=== PATIENT | male | born 1965 | race Caucasian/White ===

== ENCOUNTER 2017-08-30 18:34 | Emergency (ER) | payer MEDICAID ==
--- NOTE | 2017-08-30 19:29 | ED Physician Chart ---
ED Chief Complaint/HPI - Patient Information Date Seen:: 08/30/17 Time Seen:: 19:28 Chief Complaint:: ETOH intoxication History of Present Illness:: 52 yo male was brought by ambulance to ER due to heavy alcohol intake today and a subsequent fall outside a business. At ER, patient was slurring his words and strong alcohol smell in his mouth during conversation. He was screaming and asking for food. He denied any pain or sob. Allergies:: Allergies Allergy/AdvReac Type Severity Reaction Status Date / Time No Known Allergies Allergy Verified 08/03/17 15:13 Vitals:: Vital Signs - 8 hr 08/30/17 18:41 Temp 98.4 F HR 91 RR 21 BP 123/72 O2 Sat % 93 ED Review of Systems - Review of Systems General/Constitutional: No fever Skin: No rash Head: Headache Eyes: No pain ENT: No nasal drainage Neck: No neck pain Cardio Vascular: No chest pain Pulmonary: No SOB GI: No nausea, No vomiting Musculoskeletal: No bone or joint pain ED Past Medical History - Past Medical History Past Medical History: Other (alcohol abuse) Social History: Non Smoker, Alcohol, No Drug Use Surgical History: None Family Medical History - Family Member Mother History Unknown: Yes Ethnicity: Non- ED Physical Exam - Physical Examination General/Constitutional: Awake Head: Atraumatic Eyes: PERRL Skin: No ecchymosis Other ENMT comments:: slurred words Neck: No nuchal rigidity Respiratory: Clear to Auscultation Cardio Vascular: RRR, No murmur, gallop, rubs, NL S1 S2 GI: No tenderness/rebounding/guarding Extremities: normal strength in all extremities Neuro/Psych: No focal deficits ED Assessment - Assessment General Assessment: Alcohol intoxication Leukopenia Assessment/Comments:: CBC, CMP ETOH level Observation ED Septic Shock - . Is Septic Shock (SBP<90, OR Lactate>4 mmol\L) present?: No - <6hrs of presentation: Vital Signs: Vital Signs - 8 hr 08/30/17 18:41 Temp 98.4 F HR 91 RR 21 BP 123/72 O2 Sat % 93 ED Reassessment (Disposition) - Reassessment Reassessment Condition:: Unchanged - Patient Disposition Discharge/Transfer:: Eloped without signing AMA ED Discharge Plan - Patient Disposition Admit/Discharge/Transfer: PATIENT ELOPED
[2017-08-30 19:43] LABS: LYMPHOCYTE ABSOLUTE 1.5 Th/cmm (1.5-3.0); MONOCYTE ABSOLUTE 0.3 Th/cmm (0.3-1.0)
[2017-08-30 19:46] LABS: % BASOPHILS 0.5 % (0.0-2.0); % EOSINOPHILS 4.1 % (0.0-5.0); % LYMPHOCYTES 34.7 % (20.0-50.0); % MONOCYTES 8.2 % (2.0-10.0); % NEUTROPHILS 52.5 % (40.0-80.0); EOSINOPHILE ABSOLUTE 0.2 Th/cmm (0.1-0.4); HEMATOCRIT 37.4 % (41.0-60); HEMOGLOBIN 12.9 gm/dL (12-16); MEAN CELL VOLUME 94.2 fl (80-99); MEAN CORPUSCULAR HEMOGLOBIN 32.5 pg (26.0-30.0); MEAN CORPUSCULAR HGB CONC 34.5 pg (28.0-36.0); MEAN PLATELET VOLUME 6.1 fl; NEUTROPHILE ABSOLUTE 2.2 Th/cmm (1.8-8.0); PLATELET COUNT 265 Th/cmm (150-400); RED BLOOD COUNT 3.97 Mil/cmm (4.30-5.70)
[2017-08-30 19:48] LABS: WHITE BLOOD COUNT 4.2 Th/cmm (4.8-10.8)
[2017-08-30 20:00] LABS: ALB/GLOB RATIO 1.4 (1.0-1.8); ALBUMIN 4.2 gm/dL (4.2-5.5); ALKALINE PHOSPHATASE 37 U/L (34-104); ANION GAP 9.8 (7.0-16.0); BILIRUBIN,TOTAL 0.5 mg/dL (0.3-1.0); BUN - UREA NITROGEN 9 mg/dL (7-25); CARBON DIOXIDE 27.9 mEq/L (21.0-31.0); CHLORIDE 102 mEq/L (98-107); CREATININE - SERUM 0.7 mg/dL (0.7-1.3); GFR AFRICAN-AMERICAN > 60.0 ml/min (>90); GFR NON AFRICAN-AMERICAN > 60.0 ml/min; GLUCOSE 99 mg/dL (70-105); POTASSIUM SERUM 3.7 mEq/L (3.5-5.1); SGOT 32 U/L (13-39); SGPT/ALT 18 U/L (7-52); SODIUM SERUM 136 mEq/L (136-145); TOTAL PROTEIN,SERUM 7.2 gm/dL (6.0-8.3)
== END 2017-08-30 20:35 | disposition left against medical advice (07) ==
LOC: ER 18:34
DX: F10.129 Alcohol abuse with intoxication, unspecified (principal); D72.819 Decreased white blood cell count, unspecified
CPT/HCPCS: 36415-UA; 80053-TC; 80320-TC; 85025-TC; Z7502

== ENCOUNTER 2018-05-14 20:37 | Emergency (ER) | payer SELFPAY ==
[2018-05-14 21:34] LABS: % BASOPHILS 1.6 % (0.0-2.0); % EOSINOPHILS 3.1 % (0.0-5.0); % LYMPHOCYTES 34.1 % (20.0-50.0); % MONOCYTES 11.5 % (2.0-10.0); % NEUTROPHILS 49.7 % (40.0-80.0); BASOPHILE ABSOLUTE 0.1 Th/cumm (0-0.2); EOSINOPHILE ABSOLUTE 0.1 Th/cmm (0.1-0.4); HEMATOCRIT 34.4 % (41.0-60); HEMOGLOBIN 11.7 gm/dL (12-16); LYMPHOCYTE ABSOLUTE 1.5 Th/cmm (1.5-3.0); MEAN CELL VOLUME 92.5 fl (80-99); MEAN CORPUSCULAR HEMOGLOBIN 31.4 pg (26.0-30.0); MEAN CORPUSCULAR HGB CONC 33.9 pg (28.0-36.0); MEAN PLATELET VOLUME 5.5 fl; MONOCYTE ABSOLUTE 0.5 Th/cmm (0.3-1.0); NEUTROPHILE ABSOLUTE 2.1 Th/cmm (1.8-8.0); PLATELET COUNT 478 Th/cmm (150-400); RED BLOOD COUNT 3.72 Mil/cmm (4.30-5.70); RED CELL DISTRIBUTION WIDTH 14.5 % (11.5-20.0); WHITE BLOOD COUNT 4.3 Th/cmm (4.8-10.8)
[2018-05-14] MEDS ORDERED: Albuterol Nebulizer 2.5mg/3mL HHN ONE (21:36)
[2018-05-14 21:51] LABS: ANION GAP 14.2 (7.0-16.0); BUN - UREA NITROGEN 15 mg/dL (7-25); CALCIUM SERUM 8.7 mg/dL (8.6-10.3); CARBON DIOXIDE 25.4 mEq/L (21.0-31.0); CHLORIDE 101 mEq/L (98-107); CREATININE - SERUM 0.7 mg/dL (0.7-1.3); GFR AFRICAN-AMERICAN > 60.0 ml/min (>90); GFR NON AFRICAN-AMERICAN > 60.0 ml/min; GLUCOSE 108 mg/dL (70-105); POTASSIUM SERUM 3.6 mEq/L (3.5-5.1); SODIUM SERUM 137 mEq/L (136-145)
--- NOTE | 2018-05-14 22:44 | ED Physician Chart ---
ED Chief Complaint/HPI - Patient Information Date Seen:: 05/14/18 Time Seen:: 22:23 Chief Complaint:: Alcohol intoxication History of Present Illness:: 53 yo male was noted sleeping on street drunk and was brought by ambulance to ER for evaluation and management. On arrival, patient was screaming in the hallway. Patient stated "I am hungry." Allergies:: Allergies Allergy/AdvReac Type Severity Reaction Status Date / Time No Known Allergies Allergy Verified 05/14/18 21:05 Vitals:: Vital Signs - 8 hr 05/14/18 21:00 Temp 97.7 F HR 90 RR 18 BP 126/87 O2 Sat % 95 ED Review of Systems - Review of Systems General/Constitutional: No fever Skin: No rash Head: No headache Eyes: No pain ENT: No nasal drainage Neck: No neck pain Cardio Vascular: No chest pain Pulmonary: No SOB GI: Nausea, No vomiting Musculoskeletal: Muscle pain Neurological: No focal symptoms ED Past Medical History - Past Medical History Past Medical History: No significant medical hx Social History: Non Smoker, Alcohol, No Drug Use Surgical History: None Family Medical History - Family Member Mother History Unknown: Yes Ethnicity: Non- ED Physical Exam - Physical Examination General/Constitutional: Awake Head: Atraumatic Eyes: PERRL Skin: No skin lesions ENMT: Nasal exam nl Neck: No nuchal rigidity Respiratory: No Wheeze/Rhonchi/Rales Cardio Vascular: RRR, No murmur, gallop, rubs, NL S1 S2 GI: No tenderness/rebounding/guarding Extremities: normal strength in all extremities Neuro/Psych: No focal deficits ED Labs/Radiology/EKG Results - Lab Results Results: Laboratory Tests 05/14/18 05/14/18 21:30 21:30 WBC 4.3 L RBC 3.72 L Hgb 11.7 L Hct 34.4 L MCV 92.5 MCH 31.4 H MCHC Differential 33.9 RDW 14.5 Plt Count 478 H MPV 5.5 Neutrophils % 49.7 Lymphocytes % 34.1 Monocytes % 11.5 H Eosinophils % 3.1 Basophils % 1.6 Sodium 137 Potassium 3.6 Chloride 101 Carbon Dioxide 25.4 Anion Gap 14.2 BUN 15 Creatinine 0.7 Est GFR ( Amer) > 60.0 Est GFR (Non-Af Amer) > 60.0 BUN/Creatinine Ratio 21.4 Glucose 108 H Calcium 8.7 Ethyl Alcohol 315 H ED Assessment - Assessment General Assessment: ETOH intoxication Normocytic anemia Assessment/Comments:: CBC, CMP, ETOH level Regular diet Patient slept overnight uneventfully D/c home F/u PCP ED Septic Shock - . Is Septic Shock (SBP<90, OR Lactate>4 mmol\\L) present?: No - <6hrs of presentation: Vital Signs: Vital Signs - 8 hr //18 21:00 Temp 97.7 F HR 90 RR 18 BP 126/87 O2 Sat % 95 ED Reassessment (Disposition) - Reassessment Reassessment Condition:: Improved - Patient Disposition Discharge/Transfer:: Home
== END 2018-05-15 06:15 | disposition home or self-care (01) ==
LOC: ER 20:37
DX: F10.129 Alcohol abuse with intoxication, unspecified (principal); D64.9 Anemia, unspecified; Y90.8 Blood alcohol level of 240 mg/100 ml or more
CPT/HCPCS: 36415-UA; 80048-TC; 80320-TC; 85025-TC; J7613; Z7502

== ENCOUNTER 2018-09-30 17:08 | Emergency (ER) | payer MEDICAID ==
[2018-09-30] MEDS ORDERED: Haloperidol Lactate 5 mg/mL 1mL Vial IVP STA (17:09)
[2018-09-30] MEDS ORDERED: Haloperidol Lactate 5 mg/mL 1mL Vial ONE (17:13)
--- NOTE | 2018-09-30 17:17 | ED Physician Chart ---
ED Chief Complaint/HPI - Patient Information Date Seen:: 09/30/18 Time Seen:: 17:12 Chief Complaint:: COMBATIVE BEHAVIOR History of Present Illness:: THIS IS A KNOWN ALCOHOLIC BIB THE PARAMEDICS SCREAMING AND COMBATIVE SMELLING LIKE ALCOHOL. HIS HAS BEEN HERE FOR HE SAME REASON THREE OTHER TIMES. HE IS UNABLE TO GIVE A HISTORY OF REVIEW OF SYSTEMS. HE HAS BEEN OUT DRINKING HEAVY. Allergies:: Allergies Allergy/AdvReac Type Severity Reaction Status Date / Time No Known Allergies Allergy Verified 05/14/18 21:05 Historian:: EMS, Medical Records Review:: Nurse's Note Reviewed, Old Chart Reviewed ED Review of Systems - Review of Systems General/Constitutional: No fever, No chills, No weight loss, No weakness, No diaphoresis, No edema, No loss of appetite, Other (THIS PATIENT IS UNABLE TO GIVE A REVIEW OF SYSTEM AT THIS TIME.) Skin: No skin lesions, No rash, No bruising Head: No headache, No light-headedness Eyes: No loss of vision, No pain, No diplopia ENT: No earache, No nasal drainage, No sore throat, No tinnitus Neck: No neck pain, No swelling, No thyromegaly, No stiffness, No mass noted Cardio Vascular: No chest pain, No palpitations, No PND, No orthopnea, No edema Pulmonary: No SOB, No cough, No sputum, No wheezing GI: No nausea, No vomiting, No diarrhea, No pain, No melena, No hematochezia, No constipation, No hematemesis G/U: No dysuria, No frequency, No hematuria Musculoskeletal: No bone or joint pain, No back pain, No muscle pain Endocrine: No polyuria, No polydipsia Psychiatric: No prior psych history, No depression, No anxiety, No suicidal ideation Hematopoietic: No bruising, No lymphadenopathy Allergic/Immuno: No urticaria, No angioedema Neurological: No syncope, No focal symptoms, No weakness, No paresthesia, No headache, No seizure, No dizziness, No confusion, No vertigo ED Past Medical History - Past Medical History Obtainable: No (HE IS VERY DRUNK AND UNCOOPERATIVE) Social History: Smoker, Alcohol, Illicit Drug Use, Homeless Surgical History: None Psychiatricy History: None Medication: Reviewed Family Medical History - Family Member Mother History Unknown: Yes Ethnicity: Non- ED Physical Exam - Physical Examination General/Constitutional: Well-developed, well-nourished, Alert, No distress, GCS 15, Ambulatory Other Gen/Cons comments:: THIS PATIENT IS COMBATIVE AND UNCOOPERATIVE WITH SCREAMING AND THRASHING AROUND. HE IS INTOXICATED AND VERY UNCOOPERATIVE. Head: Atraumatic Eyes: Lids, conjuctiva normal, PERRL, EOMI Skin: Nl inspection, No rash, No skin lesions, No ecchymosis, Well hydrated, No lymphadenopathy ENMT: External ears, nose nl, Nasal exam nl, Lips, teeth, gums nl Neck: Nontender, Full ROM w/o pain, No JVD, No nuchal rigidity, No bruit, No mass, No stridor Respiratory: Nl effort/Exclusion, Clear to Auscultation, No Wheeze/Rhonchi/Rales Cardio Vascular: RRR, No murmur, gallop, rubs, NL S1 S2 GI: No tenderness/rebounding/guarding, No organomegaly, No hernia, Normal BS's, Nondistended, No mass/bruits, No McBurney tenderness : No CVA tenderness Extremities: No tenderness or effusion, Full ROM, normal strength in all extremities, No edema, Normal digits & nails Neuro/Psych: Alert/oriented, DTR's symmetric, Normal sensory exam, Normal motor strength, Judgement/insight normal, Mood normal, Normal gait, No focal deficits Misc: Normal back, No paraspinal tenderness ED Assessment - Assessment General Assessment: ALCOHOL INTOXICATION ED Septic Shock - . Is Septic Shock (SBP<90, OR Lactate>4 mmol\L) present?: No ED Reassessment (Disposition) - Reassessment Reassessment Condition:: Improved - Diagnosis Diagnosis:: ALCOHOL INTOXICATION - Aftercare/Follow up Instructions Aftercare/Follow-Up Instructions:: Counseled pt regarding lab results/diagnosis & need follow up, Refer to Discharge Instructions, Counseled pt & family regarding lab results/diagnosis & need follow up - Patient Disposition Discharge/Transfer:: Home Condition at Disposition:: Improved
[2018-09-30] MEDS ORDERED: Sodium Chloride 0.9% 1,000 ML IV ONE (17:27)
[2018-09-30 17:40] LABS: PLATELET COUNT 350 Th/cmm (150-400); RED CELL DISTRIBUTION WIDTH 20.5 % (11.5-20.0)
[2018-09-30 17:42] LABS: % BASOPHILS 1.4 % (0.0-2.0); % EOSINOPHILS 2.2 % (0.0-5.0); % LYMPHOCYTES 43.8 % (20.0-50.0); % MONOCYTES 8.2 % (2.0-10.0); % NEUTROPHILS 44.4 % (40.0-80.0); BASOPHILE ABSOLUTE 0.1 Th/cumm (0-0.2); EOSINOPHILE ABSOLUTE 0.1 Th/cmm (0.1-0.4); HEMATOCRIT 36.8 % (41.0-60); HEMOGLOBIN 12.2 gm/dL (12-16); LYMPHOCYTE ABSOLUTE 1.7 Th/cmm (1.5-3.0); MEAN CELL VOLUME 85.6 fl (80-99); MEAN CORPUSCULAR HEMOGLOBIN 28.5 pg (26.0-30.0); MEAN CORPUSCULAR HGB CONC 33.2 pg (28.0-36.0); MEAN PLATELET VOLUME 6.1 fl; MONOCYTE ABSOLUTE 0.3 Th/cmm (0.3-1.0); NEUTROPHILE ABSOLUTE 1.7 Th/cmm (1.8-8.0)
[2018-09-30 17:51] LABS: INR 0.9 (0.5-1.4); PROTHROMBIN TIME (TEST) 9.4 SECONDS (9.5-11.5)
[2018-09-30 17:57] LABS: WHITE BLOOD COUNT 3.9 Th/cmm (4.8-10.8)
[2018-09-30 17:59] LABS: ALB/GLOB RATIO 1.6 (1.0-1.8); ALBUMIN 4.4 gm/dL (4.2-5.5); ALKALINE PHOSPHATASE 52 U/L (34-104); BILIRUBIN,TOTAL 0.4 mg/dL (0.3-1.0); BUN - UREA NITROGEN 9 mg/dL (7-25); CALCIUM SERUM 8.6 mg/dL (8.6-10.3); CARBON DIOXIDE 28.7 mEq/L (21.0-31.0); CHLORIDE 104 mEq/L (98-107); CREATININE - SERUM 0.8 mg/dL (0.7-1.3); GFR AFRICAN-AMERICAN > 60.0 ml/min (>90); GFR NON AFRICAN-AMERICAN > 60.0 ml/min; GLUCOSE 99 mg/dL (70-105); POTASSIUM SERUM 3.7 mEq/L (3.5-5.1); SGOT 31 U/L (13-39); SGPT/ALT 24 U/L (7-52); SODIUM SERUM 145 mEq/L (136-145); TOTAL PROTEIN,SERUM 7.1 gm/dL (6.0-8.3)
[2018-09-30] MEDS ORDERED: Lactated Ringer 1,000 ML IV ONE (20:19)
[2018-09-30] MEDS ORDERED: D5W w/20 mEq KCL 1,000 ML IV SCH (21:13)
[2018-09-30] MEDS ORDERED: D5-0.45NS w/20 mEq KCL 1,000 ML IV ONE ×2 (21:19→21:20)
== END 2018-10-01 06:19 | disposition home or self-care (01) ==
LOC: ER 17:08
DX: F10.129 Alcohol abuse with intoxication, unspecified (principal); F17.200 Nicotine dependence, unspecified, uncomplicated; Z59.0 Homelessness
CPT/HCPCS: 99283; 96374; 96375; 84484; 36415; 83605; 85025; 85610; 80320; 80053; 87040; 90784; J2060; J7042 ×2; J1630; J7030; Z7502

== ENCOUNTER 2018-10-11 10:30 | Emergency (ER) | payer MEDICAID | END 2018-10-11 11:18 | disposition left against medical advice (07) | LOC: ER 10:30 | DX: F10.129 Alcohol abuse with intoxication, unspecified (principal); Z53.21 Procedure and treatment not carried out due to patient leaving prior to being seen by health care provider ==